=== PATIENT | female | born 1965 | race Two or more races ===

== ENCOUNTER 2021-03-27 18:39 | Inpatient (IN) | payer MEDICAID, OTHER ==
[~2021-03-27] VITALS: Ht 165.1 cm; Wt 77.1 kg
[2021-03-27] MEDS ORDERED: ZINC SULFATE 220mg CAP or TAB PO ONE (19:30)
[2021-03-27] MEDS ORDERED: CHOLECALCIFEROL (VITD3) 2,000 UNIT CAP/TAB PO ONE (19:30)
[2021-03-27] MEDS ORDERED: methylPREDNISolone SOD SUCC 125 MG/2 ML VL IV ONE (19:30)
[2021-03-27] MEDS ORDERED: ONDANSETRON HCL 4 MG/2 ML VIAL IV ONE (19:30)
[2021-03-27] MEDS ORDERED: ASCORBIC ACID 500 MG TAB PO ONE (19:30)
[2021-03-27 20:42] LABS: Basophils # (auto) 0 10 ^3/uL (0-0.2); Basophils % (auto) 0.3 % (0.0-2.0); Eosinophils # (auto) 0.1 10 ^3/uL (0-0.8); Eosinophils % (auto) 0.7 % (0.0-7.0); Hematocrit 42.8 % (36.0-46.0); Hemoglobin 14.3 g/dL (12.2-16.2); Lymphocytes # (auto) 1.1 10 ^3/uL (0.4-5.4); Mean Corpuscular Hemoglobin 26.1 pg (28.0-32.0); Mean Corpuscular Hgb Conc. 33.3 g/dL (32.0-36.0); Mean Corpuscular Volume 78.4 fL (80.0-100.0); Monocytes # (auto) 0.9 10 ^3/uL (0-1.3); Monocytes % (auto) 9.6 % (0.0-12.0); Neutrophils # (auto) 7.4 10 ^3/uL (1.6-8.6); Neutrophils % (auto) 77.4 % (37.0-80.0); Nucleated Red Blood Cells % 0.1 %; Red Blood Cells 5.46 10^6/uL (4.0-5.20); Red Cell Distribution Width 14.3 % (11.8-14.3); White Blood Cell 9.5 10^3/uL (4.4-10.8)
[2021-03-27 20:59] LABS: Albumin 3.3 g/dL (3.4-5.0); Calcium 9.1 mg/dL (8.5-10.1); Magnesium 2.4 mg/dL (1.6-2.6); Potassium 3.2 mmol/L (3.5-5.1)
[2021-03-27 21:01] LABS: BUN/Creatinine Ratio 23.3
[2021-03-27 21:03] LABS: Bilirubin, Total 0.7 mg/dL (0.2-1.0); Total Protein 7.6 g/dL (6.4-8.2)
[2021-03-27] MEDS ORDERED: NITROGLYCERIN 0.4 MG SL TAB SL PRN (21:30)
[2021-03-27] MEDS ORDERED: ONDANSETRON HCL 4 MG/2 ML VIAL IV PRN (21:30)
[2021-03-27] MEDS ORDERED: ACETAMINOPHEN 500 MG TAB PO PRN (21:30)
[2021-03-27] MEDS ORDERED: TEMAZEPAM 15 MG CAP PO PRN (21:30)
[2021-03-27] MEDS ORDERED: DEXTROSE (50%) 50ML SYRG IV PRN (21:30)
[2021-03-27] MEDS: ASCORBIC ACID 500 MG TAB PO SCH (22:00)
[2021-03-27] MEDS: AZITHROMYCIN 500MG/ 250ML 250 ML IV SCH (22:45)
[2021-03-27] MEDS: GABAPENTIN 300 MG CAP PO SCH (22:46)
[2021-03-27] MEDS: ENOXAPARIN SOD 40 MG/0.4 ML SYRINGE SC SCH (22:46)
[2021-03-27 23:50] LABS: Magnesium 2.2 mg/dL (1.6-2.6)
[2021-03-27 23:59] LABS: CRP High Sensitivity 2.94 mg/dL (< 0.3)
[2021-03-28] MEDS: InsuLIN REG 1unit/0.01ml Soln (100units/ml) SC SCH ×4 (01:17→17:54)
[2021-03-28] MEDS ORDERED: SEMA2INJ SC (01:30)
[2021-03-28] MEDS ORDERED: INSLANTI SC (01:31)
[2021-03-28] MEDS ORDERED: METF-371 PO (01:32)
[2021-03-28] MEDS ORDERED: ALOG1TAB2 PO (01:32)
[2021-03-28] MEDS ORDERED: MELO1TAB73 PO (01:35)
[2021-03-28] MEDS ORDERED: PAR20T PO (01:35)
[2021-03-28] MEDS ORDERED: GUAI600T23 PO (01:36)
[2021-03-28 01:52] VITALS: BP 141/81
[2021-03-28 03:55] VITALS: BP 141/81
[2021-03-28 05:00] VITALS: BP 130/77
[2021-03-28] MEDS: ACCU-CHEK COMFORT CURVE STRIP VI SCH ×4 (05:43→17:35)
[2021-03-28] MEDS: GABAPENTIN 300 MG CAP PO SCH ×3 (05:45→21:05)
[2021-03-28 06:57] LABS: Basophils # (auto) 0 10 ^3/uL (0-0.2); Eosinophils # (auto) 0 10 ^3/uL (0-0.8); Eosinophils % (auto) 0.1 % (0.0-7.0); Neutrophils # (auto) 5.4 10 ^3/uL (1.6-8.6)
[2021-03-28 06:59] LABS: Albumin 2.8 g/dL (3.4-5.0); Basophils % (auto) 0.2 % (0.0-2.0); Calcium 8.6 mg/dL (8.5-10.1); Hematocrit 38.8 % (36.0-46.0); Hemoglobin 12.8 g/dL (12.2-16.2); Lymphocytes # (auto) 0.7 10 ^3/uL (0.4-5.4); Lymphocytes % (auto) 11.3 % (10.0-50.0); Mean Corpuscular Hemoglobin 26.2 pg (28.0-32.0); Mean Corpuscular Hgb Conc. 33.1 g/dL (32.0-36.0); Mean Corpuscular Volume 79.1 fL (80.0-100.0); Monocytes # (auto) 0.1 10 ^3/uL (0-1.3); Monocytes % (auto) 2.2 % (0.0-12.0); Neutrophils % (auto) 86.2 % (37.0-80.0); Nucleated Red Blood Cells % 0.1 %; Potassium 3.9 mmol/L (3.5-5.1); Red Cell Distribution Width 14.8 % (11.8-14.3); White Blood Cell 6.2 10^3/uL (4.4-10.8)
[2021-03-28 07:02] LABS: BUN/Creatinine Ratio 28.4
[2021-03-28 07:05] LABS: Bilirubin, Total 0.5 mg/dL (0.2-1.0); Total Protein 6.6 g/dL (6.4-8.2)
[2021-03-28 08:00] VITALS: BP 129/71
[2021-03-28] MEDS: AZITHROMYCIN 500MG/ 250ML 250 ML IV SCH (08:37)
[2021-03-28] MEDS: ENOXAPARIN SOD 40 MG/0.4 ML SYRINGE SC SCH ×2 (08:37→21:05)
[2021-03-28] MEDS: DexAMETHasone SOD PHOS 10MG/1ML VIAL INJ IV SCH (08:37)
[2021-03-28] MEDS: ZINC SULFATE 220mg CAP or TAB PO SCH (08:38)
[2021-03-28] MEDS: PARoxetine 20 MG TAB PO SCH (08:38)
[2021-03-28] MEDS: CHOLECALCIFEROL (VITD3) 2,000 UNIT CAP/TAB PO SCH (08:38)
[2021-03-28] MEDS: ASCORBIC ACID 500 MG TAB PO SCH ×2 (08:38→21:05)
[2021-03-28] MEDS ORDERED: IOHEXOL 350 MG/ML 100ML IJ ONE (11:32)
[2021-03-28 12:00] VITALS: BP 129/71
[2021-03-28] MEDS ORDERED: ACETAMINOPHEN 325 MG TAB PO PRN (16:00)
[2021-03-28] MEDS: BUDESONIDE (INHALATION) 180 MCG IH IN SCH (20:31)
[2021-03-28] MEDS: ALBUTEROL SULF HFA 90MCG INH 200DOSE IN PRN (20:32)
[2021-03-29 05:00] VITALS: BP 122/73
[2021-03-29] MEDS: InsuLIN REG 1unit/0.01ml Soln (100units/ml) SC SCH ×3 (06:00→12:19)
[2021-03-29] MEDS: ACCU-CHEK COMFORT CURVE STRIP VI SCH ×3 (06:19→12:04)
[2021-03-29] MEDS: GABAPENTIN 300 MG CAP PO SCH ×2 (06:19→15:04)
[2021-03-29 06:24] LABS: Basophils # (auto) 0 10 ^3/uL (0-0.2); Neutrophils # (auto) 7.4 10 ^3/uL (1.6-8.6)
[2021-03-29 06:27] LABS: Basophils % (auto) 0.1 % (0.0-2.0); Eosinophils # (auto) 0 10 ^3/uL (0-0.8); Eosinophils % (auto) 0.4 % (0.0-7.0); Hematocrit 37.9 % (36.0-46.0); Hemoglobin 12.2 g/dL (12.2-16.2); Lymphocytes # (auto) 1.7 10 ^3/uL (0.4-5.4); Lymphocytes % (auto) 16.3 % (10.0-50.0); Mean Corpuscular Hemoglobin 25.2 pg (28.0-32.0); Mean Corpuscular Hgb Conc. 32.3 g/dL (32.0-36.0); Mean Corpuscular Volume 78.1 fL (80.0-100.0); Monocytes # (auto) 1.1 10 ^3/uL (0-1.3); Monocytes % (auto) 10.5 % (0.0-12.0); Neutrophils % (auto) 72.7 % (37.0-80.0); Nucleated Red Blood Cells % 0.1 %; Red Blood Cells 4.84 10^6/uL (4.0-5.20); Red Cell Distribution Width 14.3 % (11.8-14.3); White Blood Cell 10.2 10^3/uL (4.4-10.8)
[2021-03-29 06:38] LABS: Calcium 8.5 mg/dL (8.5-10.1); Potassium 3.4 mmol/L (3.5-5.1)
[2021-03-29 06:40] LABS: BUN/Creatinine Ratio 21.5; CRP High Sensitivity 0.82 mg/dL (< 0.3)
[2021-03-29] MEDS: BUDESONIDE (INHALATION) 180 MCG IH IN SCH (08:14)
[2021-03-29] MEDS: ALBUTEROL SULF HFA 90MCG INH 200DOSE IN PRN (08:14)
[2021-03-29 09:00] VITALS: BP 122/76
[2021-03-29] MEDS: PARoxetine 20 MG TAB PO SCH (09:35)
[2021-03-29] MEDS: DexAMETHasone SOD PHOS 10MG/1ML VIAL INJ IV SCH (09:35)
[2021-03-29] MEDS: CHOLECALCIFEROL (VITD3) 2,000 UNIT CAP/TAB PO SCH (09:35)
[2021-03-29] MEDS: ASCORBIC ACID 500 MG TAB PO SCH (09:36)
[2021-03-29] MEDS: ZINC SULFATE 220mg CAP or TAB PO SCH (09:36)
[2021-03-29] MEDS: AZITHROMYCIN 500MG/ 250ML 250 ML IV SCH (09:36)
[2021-03-29] MEDS: ENOXAPARIN SOD 40 MG/0.4 ML SYRINGE SC SCH (09:36)
[2021-03-29] MEDS ORDERED: ALBUAER3 IN (10:36)
[2021-03-29] MEDS ORDERED: DOXY-332 PO (10:36)
[2021-03-29] MEDS ORDERED: DEXA6TAB6 PO (10:36)
[2021-03-29 13:00] VITALS: BP 141/88
[2021-03-29 16:07] VITALS: BP 141/88
[2021-03-29 16:54] VITALS: BP 156/80
== END 2021-03-29 17:45 | disposition home health service (06) | DRG 137 ==
LOC: EDBD 18:39 → ER 18:43 → TELE 21:19 → TELE-EAST 23:14
PROVIDERS: ADMIT Nurse Practitioner; ATTEND Internal Medicine
DX: U07.1 COVID-19 (principal); J96.01 Acute respiratory failure with hypoxia; J12.82 Pneumonia due to coronavirus disease 2019; E11.9 Type 2 diabetes mellitus without complications; E86.0 Dehydration; F32.9 Major depressive disorder, single episode, unspecified; E78.5 Hyperlipidemia, unspecified; Z80.0 Family history of malignant neoplasm of digestive organs; Z82.49 Family history of ischemic heart disease and other diseases of the circulatory system; Z88.5 Allergy status to narcotic agent; E87.8 Other disorders of electrolyte and fluid balance, not elsewhere classified
CPT/HCPCS: 36415; 36600; 71045; 71275; 80048; 80053; 82306; 82728; 82805; 82962; 83036; 83605; 83735; 84443; 84484; 85025; 85379; 86141; 87426; 93005; 93970; 94640; 96365; 96375; G0378; J1100; J1815; J2405